=== PATIENT | female | born 1930 | race Caucasian/White ===

== ENCOUNTER → 2017-12-24 | Outpatient (CLI) | payer MEDICARE ==
[2017-12-24 20:57] LABS: BILIRUBIN,URINE NEGATIVE (NEGATIVE); UROBILINOGEN,URINE NORMAL (NEGATIVE)
[2017-12-24 20:58] LABS: BASOPHIL % 1.5 % (0.0-0.2); EOSINOPHIL # 0.1 10^3/uL (0.0-0.2); EOSINOPHIL % 5.9 % (0.0-5.0); HEMOGLOBIN 12.7 g/dL (13.9-16.3); LYMPHOCYTES # 0.8 10^3/uL (1.0-4.8); LYMPHOCYTES % 39.1 % (24.0-44.0); MEAN CELL HGB 28.4 pg (26-34); MEAN CELL HGB CONCENTRATION 32.1 g/dL (33-37); MEAN CORP VOLUME 88.6 fL (78-100); MEAN PLATELET VOLUME 10.9 fL (7.8-11.0); MONOCYTES # 0.2 10^3/uL (0.3-0.8); MONOCYTES % 9.9 % (5.0-12.0); NEUTROPHIL # 0.9 10^3/uL (1.8-7.7); NEUTROPHILS % 43.6 % (41.0-85.0); RED CELL DISTRIBUTION WIDTH 16.7 % (11.5-14.5)
[2017-12-24 21:04] LABS: APPEARANCE,URINE CLEAR (CLEAR); UA COLOR YELLOW (YELLOW)
[2017-12-24 21:11] LABS: CALCIUM 8.2 mg/dL (8.4-10.5); CARBON DIOXIDE 31.9 mmol/L (20.0-32)
== END | disposition home or self-care (01) ==
LOC: NPLAB 20:18 → EDSEX 20:18
PROVIDERS: ATTEND Student in an Organized Health Care Education/Training Program
DX: N39.0 Urinary tract infection, site not specified (principal)
CPT/HCPCS: 36415; 80053; 81002; 85025; 87077; 87086; 87186

== ENCOUNTER → 2018-02-06 | Outpatient (CLI) | payer MEDICARE ==
[2018-02-06 20:42] LABS: HEMOGLOBIN 12.7 g/dL (12.0-15.0)
== END | disposition home or self-care (01) ==
LOC: NPLAB 20:14
PROVIDERS: ATTEND Internal Medicine
DX: I69.354 Hemiplegia and hemiparesis following cerebral infarction affecting left non-dominant side (principal); I10 Essential (primary) hypertension
CPT/HCPCS: 85014; 85018

== ENCOUNTER → 2018-02-15 | Outpatient (CLI) | payer MEDICARE ==
[2018-02-15 19:36] LABS: BILIRUBIN,URINE NEGATIVE (NEGATIVE); UROBILINOGEN,URINE NORMAL (NEGATIVE)
[2018-02-15 19:39] LABS: APPEARANCE,URINE SLIGHTLY CLOUDY (CLEAR); UA COLOR YELLOW (YELLOW)
== END | disposition home or self-care (01) ==
LOC: LAB 18:30
PROVIDERS: ATTEND Internal Medicine
DX: N39.0 Urinary tract infection, site not specified (principal); I10 Essential (primary) hypertension
CPT/HCPCS: 81000; 87086

== ENCOUNTER → 2018-03-13 | Outpatient (CLI) | payer MEDICARE ==
[2018-03-13 14:48] LABS: HEMOGLOBIN 13.5 g/dL (12.0-15.0)
[2018-03-13 14:59] LABS: CALCIUM 8.6 mg/dL (8.4-10.5); CARBON DIOXIDE 32.9 mmol/L (20.0-32)
== END | disposition home or self-care (01) ==
LOC: LAB 14:22
DX: D64.9 Anemia, unspecified (principal); N18.9 Chronic kidney disease, unspecified; I10 Essential (primary) hypertension
CPT/HCPCS: 80048; 85014; 85018